=== PATIENT | male | born 1950 | race Caucasian/White ===

== ENCOUNTER 2019-08-23 07:08 | Inpatient (IN) | payer OTHER ==
[~2019-08-23] VITALS: Ht 162.6 cm; Wt 89.8 kg
[2019-08-23 07:08] VITALS: BP_SYST 151
[2019-08-23] MEDS ORDERED: ASPIRIN 325 MG TABLET PO ONE (07:15)
[2019-08-23 07:37] LABS: BASOPHILS # (AUTO) 0.1 K/uL (0.0-0.2); BASOPHILS % (AUTO) 0.9 % (0.0-2.0); EOSINOPHILS # (AUTO) 0.1 K/uL (0.0-0.4); EOSINOPHILS % (AUTO) 0.5 % (0.0-4.0); HEMATOCRIT 42.9 % (36-54); HEMOGLOBIN 13.5 g/dL (14.0-18.0); LYMPHOCYTES # (AUTO) 1.6 K/uL (1.0-5.5); MEAN CORPUSCULAR HEMOGLOBIN 22 pg (27-31); MEAN CORPUSCULAR HGB CONC 31 % (32-36); MEAN CORPUSCULAR VOLUME 71 fL (79.0-98.0); MONOCYTES # (AUTO) 0.7 K/uL (0.0-1.0); NEUTROPHILS % (AUTO) 81.6 % (40.0-70.0); PLATELET COUNT (AUTO) 142 K/uL (130-430); RED BLOOD CELL COUNT(AUTO) 6.01 MIL/uL (4.2-6.2); RED CELL DISTRIBUTION WIDTH 15.7 % (9.0-15.0); WHITE BLOOD COUNT (AUTO) 13.4 K/uL (4.8-10.8)
[2019-08-23] MEDS ORDERED: PANTOPRAZOLE SODIUM 40 MG/VIAL (PROTONIX) IVP ONE (08:00)
[2019-08-23] MEDS ORDERED: MORPHINE 2 MG/ML INJ. SYRINGE IVP ONE (08:00)
[2019-08-23 08:25] LABS: POTASSIUM 3.8 mmol/L (3.5-5.1)
[2019-08-23 08:26] LABS: CALCIUM 8.3 mg/dL (8.4-11.0)
[2019-08-23 08:27] LABS: CREATININE 1.21 mg/dL (0.55-1.30)
[2019-08-23 08:28] LABS: TOTAL BILIRUBIN 0.4 mg/dL (0.0-1.0)
[2019-08-23 08:30] LABS: ALBUMIN 3.6 g/dL (3.4-4.8)
[2019-08-23 08:56] VITALS: BP_SYST 146
[2019-08-23 09:37] LABS: INR 1.1 (0.80-1.20)
[2019-08-23] MEDS ORDERED: IPRATROPIUM BROM 0.5 MG/2.5 ML VIAL.NEB (ATROVENT) INH PRN (10:00)
[2019-08-23] MEDS ORDERED: ALBUTEROL SULFATE 0.083% 2.5 MG/3 ML VIAL.NEB INH PRN (10:00)
[2019-08-23 10:26] VITALS: BP_SYST 146
[2019-08-23] MEDS ORDERED: CARVEDILOL 3.125 MG TABLET (COREG) PO ONE (10:55)
[2019-08-23] MEDS ORDERED: AMIODARONE HCL 200 MG TABLET PO ONE (10:55)
[2019-08-23] MEDS ORDERED: APIXABAN 2.5 MG TABLET PO ONE (10:57)
[2019-08-23] MEDS: ALBUTEROL SULFATE 0.083% 2.5 MG/3 ML VIAL.NEB INH SCH ×3 (11:51→20:10)
[2019-08-23] MEDS: IPRATROPIUM BROM 0.5 MG/2.5 ML VIAL.NEB (ATROVENT) INH SCH ×3 (11:51→20:11)
[2019-08-23 12:16] VITALS: BP_SYST 145
[2019-08-23 13:39] LABS: BILIRUBIN,URINE NEGATIVE (NEGATIVE); BLOOD, URINE NEGATIVE (NEGATIVE); CLARITY/URINE CLEAR (CLEAR); COLOR,URINE YELLOW (YELLOW); GLUCOSE,URINE NEGATIVE (NEGATIVE); KETONES,URINE NEGATIVE (NEGATIVE); LEUKOCYTE ESTERASE ,URINE NEGATIVE (NEGATIVE); NITRITE, URINE NEGATIVE (NEGATIVE); PROTEIN URINE 1+ (NEGATIVE); UROBILINOGEN,URINE 0.2 (0.2-1.0)
[2019-08-23 13:45] LABS: BACTERIA,URINE FEW /HPF (None Seen); RBC,URINE 0-3 /HPF (0-3); URINE AMORPHOUS URATE 1+ /HPF (None Seen); WBC,URINE 0-3 /HPF (0-3)
[2019-08-23] MEDS: MORPHINE SULFATE 10 MG/ML VIAL IVP PRN ×3 (13:46→23:09)
[2019-08-23 16:28] VITALS: BP_SYST 150
[2019-08-23] MEDS: CARVEDILOL 3.125 MG TABLET (COREG) PO SCH (20:42)
[2019-08-23] MEDS: AMIODARONE HCL 200 MG TABLET PO SCH (20:43)
[2019-08-23] MEDS: APIXABAN 2.5 MG TABLET PO SCH (20:44)
[2019-08-24 00:43] VITALS: BP_SYST 136
[2019-08-24 04:15] VITALS: BP_SYST 149
[2019-08-24 06:53] LABS: BASOPHILS % (AUTO) 0.1 % (0.0-2.0); EOSINOPHILS # (AUTO) 0.1 K/uL (0.0-0.4); EOSINOPHILS % (AUTO) 0.5 % (0.0-4.0); HEMATOCRIT 43.4 % (36-54); HEMOGLOBIN 13.6 g/dL (14.0-18.0); LYMPHOCYTES # (AUTO) 1.3 K/uL (1.0-5.5); LYMPHOCYTES % (AUTO) 10.5 % (20.5-51.5); MEAN CORPUSCULAR HEMOGLOBIN 22 pg (27-31); MEAN CORPUSCULAR HGB CONC 32 % (32-36); MEAN CORPUSCULAR VOLUME 71 fL (79.0-98.0); MONOCYTES % (AUTO) 8.4 % (1.7-9.3); NEUTROPHILS # (AUTO) 9.8 K/uL (1.8-7.7); NEUTROPHILS % (AUTO) 80.5 % (40.0-70.0); PLATELET COUNT (AUTO) 139 K/uL (130-430); RED BLOOD CELL COUNT(AUTO) 6.12 MIL/uL (4.2-6.2); RED CELL DISTRIBUTION WIDTH 15.5 % (9.0-15.0); WHITE BLOOD COUNT (AUTO) 12.2 K/uL (4.8-10.8)
[2019-08-24 06:58] LABS: ALBUMIN 3.5 g/dL (3.4-4.8); CALCIUM 8.3 mg/dL (8.4-11.0); CREATININE 1.12 mg/dL (0.55-1.30); POTASSIUM 3.7 mmol/L (3.5-5.1); THYROID STIMULATING HORMONE 1.29 uIu/mL (0.36-3.74); TOTAL BILIRUBIN 0.8 mg/dL (0.0-1.0)
[2019-08-24] MEDS: ALBUTEROL SULFATE 0.083% 2.5 MG/3 ML VIAL.NEB INH SCH ×5 (07:30→20:05)
[2019-08-24] MEDS: IPRATROPIUM BROM 0.5 MG/2.5 ML VIAL.NEB (ATROVENT) INH SCH ×5 (07:30→20:04)
[2019-08-24] MEDS: AMIODARONE HCL 200 MG TABLET PO SCH ×2 (08:18→20:10)
[2019-08-24] MEDS: CARVEDILOL 3.125 MG TABLET (COREG) PO SCH (08:19)
[2019-08-24] MEDS: APIXABAN 2.5 MG TABLET PO SCH ×2 (08:20→20:11)
[2019-08-24 08:26] VITALS: BP_SYST 156
[2019-08-24] MEDS ORDERED: PANTOPRAZOLE SODIUM 40 MG TAB PO ONE (10:00)
[2019-08-24] MEDS: ACETAMINOPHEN 325 MG TABLET PO PRN (10:48)
[2019-08-24 12:00] VITALS: BP_SYST 144
[2019-08-24] MEDS: MORPHINE SULFATE 10 MG/ML VIAL IVP PRN (16:16)
[2019-08-24 16:36] VITALS: BP_SYST 174
[2019-08-24 20:00] VITALS: BP_SYST 163
[2019-08-24] MEDS: CARVEDILOL 12.5 MG TABLET (COREG) PO SCH (20:09)
[2019-08-24] MEDS ORDERED: CARVEDILOL 3.125 MG TABLET (COREG) PO SCH (21:00)
[2019-08-25 00:35] VITALS: BP_SYST 137
[2019-08-25] MEDS: ACETAMINOPHEN 325 MG TABLET PO PRN ×2 (02:55→08:17)
[2019-08-25 06:54] LABS: BASOPHILS % (AUTO) 0.2 % (0.0-2.0); EOSINOPHILS # (AUTO) 0.1 K/uL (0.0-0.4); EOSINOPHILS % (AUTO) 0.6 % (0.0-4.0); HEMATOCRIT 41.5 % (36-54); HEMOGLOBIN 12.9 g/dL (14.0-18.0); LYMPHOCYTES # (AUTO) 1.3 K/uL (1.0-5.5); LYMPHOCYTES % (AUTO) 10.8 % (20.5-51.5); MEAN CORPUSCULAR HEMOGLOBIN 22 pg (27-31); MEAN CORPUSCULAR HGB CONC 31 % (32-36); MEAN CORPUSCULAR VOLUME 71 fL (79.0-98.0); MONOCYTES # (AUTO) 1.1 K/uL (0.0-1.0); MONOCYTES % (AUTO) 8.8 % (1.7-9.3); NEUTROPHILS # (AUTO) 9.6 K/uL (1.8-7.7); NEUTROPHILS % (AUTO) 79.6 % (40.0-70.0); PLATELET COUNT (AUTO) 116 K/uL (130-430); RED BLOOD CELL COUNT(AUTO) 5.87 MIL/uL (4.2-6.2); RED CELL DISTRIBUTION WIDTH 15.4 % (9.0-15.0); WHITE BLOOD COUNT (AUTO) 12.1 K/uL (4.8-10.8)
[2019-08-25 07:23] LABS: CALCIUM 8.3 mg/dL (8.4-11.0); CREATININE 1.12 mg/dL (0.55-1.30); POTASSIUM 4.1 mmol/L (3.5-5.1)
[2019-08-25] MEDS: IPRATROPIUM BROM 0.5 MG/2.5 ML VIAL.NEB (ATROVENT) INH SCH ×2 (07:37→11:49)
[2019-08-25] MEDS: ALBUTEROL SULFATE 0.083% 2.5 MG/3 ML VIAL.NEB INH SCH ×2 (07:37→11:49)
[2019-08-25 07:54] VITALS: BP_SYST 148
[2019-08-25] MEDS: AMIODARONE HCL 200 MG TABLET PO SCH (08:16)
[2019-08-25] MEDS: CARVEDILOL 12.5 MG TABLET (COREG) PO SCH (08:17)
[2019-08-25] MEDS: APIXABAN 2.5 MG TABLET PO SCH (08:18)
[2019-08-25] MEDS ORDERED: PANTOPRAZOLE SODIUM 40 MG TAB PO SCH (09:00)
[2019-08-25] MEDS ORDERED: AMI200 PO (11:20)
[2019-08-25] MEDS ORDERED: APIX2.5T PO (11:20)
[2019-08-25] MEDS ORDERED: PRO40 PO (11:20)
[2019-08-25] MEDS ORDERED: COR12.5 PO (11:20)
[2019-08-25 11:49] VITALS: BP_SYST 128
[2019-08-25 12:10] VITALS: BP_SYST 128
== END 2019-08-25 13:07 | disposition home or self-care (01) | DRG 310 ==
LOC: SED 07:08 → STU 08:15
PROVIDERS: ADMIT Internal Medicine Hospice and Palliative Medicine; ATTEND Internal Medicine Hospice and Palliative Medicine
DX: I48.91 Unspecified atrial fibrillation (principal); I10 Essential (primary) hypertension; J44.9 Chronic obstructive pulmonary disease, unspecified; R07.9 Chest pain, unspecified; Z85.46 Personal history of malignant neoplasm of prostate; Z86.718 Personal history of other venous thrombosis and embolism; Z87.891 Personal history of nicotine dependence; Z79.01 Long term (current) use of anticoagulants
CPT/HCPCS: 36415; 71045; 80048; 80053; 80061; 81000-TC; 83880; 84443-TC; 84484; 85025; 85379; 85610-TC; 85730-TC; 93005; 93306; 93970; 94640; 94760; 96374; 96375; 99285; C9113; G0378; J2270; J7613

== ENCOUNTER 2019-08-29 05:02 | Emergency (ER) | payer OTHER ==
[~2019-08-29] VITALS: Ht 162.6 cm; Wt 90.7 kg
[~2019-08-29 05:02] MED LIST: AMI200 PO; APIX2.5T PO; COR12.5 PO; PRO40 PO
[2019-08-29 05:10] VITALS: BP_SYST 163
[2019-08-29] MEDS ORDERED: NACL 0.9% 1,000 ML IV ONE (05:23)
[2019-08-29] MEDS ORDERED: DIPHENHYDRAMINE INJ 50 MG/ML VIAL IVP ONE (05:30)
[2019-08-29] MEDS ORDERED: MORPHINE 2 MG/ML INJ. SYRINGE IVP ONE (05:30)
[2019-08-29 05:52] LABS: BILIRUBIN,URINE NEGATIVE (NEGATIVE); BLOOD, URINE 1+ (NEGATIVE); CLARITY/URINE CLEAR (CLEAR); COLOR,URINE YELLOW (YELLOW); GLUCOSE,URINE NEGATIVE (NEGATIVE); KETONES,URINE TRACE (NEGATIVE); LEUKOCYTE ESTERASE ,URINE NEGATIVE (NEGATIVE); NITRITE, URINE NEGATIVE (NEGATIVE); PROTEIN URINE 2+ (NEGATIVE)
[2019-08-29 05:57] LABS: BACTERIA,URINE FEW /HPF (None Seen); BASOPHILS # (AUTO) 0.1 K/uL (0.0-0.2); BASOPHILS % (AUTO) 0.5 % (0.0-2.0); EOSINOPHILS # (AUTO) 0.1 K/uL (0.0-0.4); EOSINOPHILS % (AUTO) 0.5 % (0.0-4.0); HEMOGLOBIN 12.5 g/dL (14.0-18.0); LYMPHOCYTES # (AUTO) 1.1 K/uL (1.0-5.5); LYMPHOCYTES % (AUTO) 8.7 % (20.5-51.5); MEAN CORPUSCULAR HEMOGLOBIN 22 pg (27-31); MEAN CORPUSCULAR HGB CONC 31 % (32-36); MEAN CORPUSCULAR VOLUME 71 fL (79.0-98.0); MONOCYTES # (AUTO) 1.2 K/uL (0.0-1.0); MONOCYTES % (AUTO) 10.2 % (1.7-9.3); NEUTROPHILS # (AUTO) 9.8 K/uL (1.8-7.7); NEUTROPHILS % (AUTO) 80.1 % (40.0-70.0); PLATELET COUNT (AUTO) 173 K/uL (130-430); RED BLOOD CELL COUNT(AUTO) 5.67 MIL/uL (4.2-6.2); RED CELL DISTRIBUTION WIDTH 15.8 % (9.0-15.0); WBC,URINE 0-3 /HPF (0-3); WHITE BLOOD COUNT (AUTO) 12.2 K/uL (4.8-10.8)
[2019-08-29 06:18] LABS: CALCIUM 8.1 mg/dL (8.4-11.0); CREATININE 1.6 mg/dL (0.55-1.30); POTASSIUM 5.1 mmol/L (3.5-5.1)
[2019-08-29 06:24] LABS: ALBUMIN 3.1 g/dL (3.4-4.8); TOTAL BILIRUBIN 0.8 mg/dL (0.0-1.0)
[2019-08-29 06:44] LABS: INR 1.1 (0.80-1.20); PROTHROMBIN TIME 10.9 SECS (9.5-12.5)
[2019-08-29] MEDS ORDERED: KETOROLAC TROMETHAMINE 30 MG VIAL IVP ONE (08:45)
[2019-08-29] MEDS ORDERED: MAGNESIUM CITRATE 300 ML ORAL SOLUTION PO ONE (08:45)
[2019-08-29] MEDS ORDERED: GOLYTELY / COLYTE SOLUTION 4 LITERS PO ONE (10:00)
[2019-08-29 10:24] VITALS: BP_SYST 162
== END 2019-08-29 10:24 | disposition home or self-care (01) ==
LOC: SED 05:02
DX: R10.9 Unspecified abdominal pain (principal); I10 Essential (primary) hypertension; J45.909 Unspecified asthma, uncomplicated; Z79.899 Other long term (current) drug therapy; Z86.718 Personal history of other venous thrombosis and embolism
CPT/HCPCS: 36415; 74176; 80053; 81000; 85025; 85610; 85730; 93005; 96374; 96375; 99285; J1200; J1885; J2270; J7030

== ENCOUNTER 2023-08-12 21:00 | Emergency (ER) | payer BC, OTHER ==
[~2023-08-12] VITALS: Ht 157.5 cm; Wt 87.1 kg
[~2023-08-12 21:00] MED LIST changes: -AMI200 PO; +AMIO200T66 PO
[2023-08-12 21:06] VITALS: BP_SYST 129; PULSE 65; RESP 16; TEMP 97; O2SAT 97
[2023-08-12 22:46] VITALS: BP_SYST 135; PULSE 70; RESP 17; TEMP 97.5; O2SAT 98
== END 2023-08-12 22:44 | disposition home or self-care (01) ==
LOC: SED 21:00
DX: R04.0 Epistaxis (principal); J45.909 Unspecified asthma, uncomplicated; I10 Essential (primary) hypertension; Z79.899 Other long term (current) drug therapy
CPT/HCPCS: 99281